=== PATIENT | male | born 1990 | race African-American/Black ===

== ENCOUNTER 2017-03-17 01:26 | Emergency (ER) | payer SELFPAY ==
[~2017-03-17] VITALS: Ht 175.3 cm; Wt 95.0 kg
[~2017-03-17 01:26] MED LIST: AMOX875T20 PO; LORTA5 PO
[2017-03-17 01:29] VITALS: BP 141/94; PULSE 62; RESP 15; TEMP 98.1; O2SAT 98
== END 2017-03-17 02:09 | disposition left against medical advice (07) ==
LOC: NEPC 01:26
DX: Z51.89 Encounter for other specified aftercare (principal); Z53.21 Procedure and treatment not carried out due to patient leaving prior to being seen by health care provider
CPT/HCPCS: 99281